=== PATIENT | male | born 1965 | race African-American/Black ===

== ENCOUNTER 2025-01-10 07:35 | Emergency (ER) | payer MEDICARE ==
[~2025-01-10] VITALS: Ht 185.4 cm; Wt 113.0 kg
[2025-01-10 07:39] VITALS: BP 161/115; PULSE 104; RESP 18; TEMP 36.7; O2SAT 100
[2025-01-10] MEDS: ACETAMINOPHEN 325MG TABLET PO NR (08:30)
[2025-01-10] MEDS: LIDOCAINE 5% PATCH TOP SCH (10:15)
== END 2025-01-10 14:56 | disposition home or self-care (01) ==
LOC: ER 07:48
DX: M54.50 Low back pain, unspecified (principal); E78.00 Pure hypercholesterolemia, unspecified; J44.9 Chronic obstructive pulmonary disease, unspecified; Z98.890 Other specified postprocedural states; V49.40XA Driver injured in collision with unspecified motor vehicles in traffic accident, initial encounter; Y93.89 Activity, other specified; Y92.89 Other specified places as the place of occurrence of the external cause; Y99.8 Other external cause status
CPT/HCPCS: 71250; 74176; 99284